=== PATIENT | female | born 1960 | race Caucasian/White ===

== ENCOUNTER → 2020-04-23 15:27 | Outpatient (CLI) | payer OTHER, SELFPAY ==
--- NOTE | ~2020-04-23 | MM_ITS ---
EXAMINATION: MM screening shaun BI w an HISTORY: Screening TECHNIQUE: Craniocaudal and mediolateral oblique 3-D tomosynthesis images were obtained and synthetic 2-D images were generated. CAD analysis was submitted and interpreted. COMPARISON: Comparison to multiple prior studies sequentially, with oldest reviewed study dated 01/18. BREAST PARENCHYMAL COMPOSITION: The breasts are extremely dense, which lowers the sensitivity of mamm ography. FINDINGS: There is no evidence of suspicious mass, calcification, or architectural distortion to sugg est malignancy in either breast. There has been no suspicious interval change. IMPRESSION: 1. No mammographic evidence of malignancy. 2. Recommend routine screening mammography in one year. BI-RADS Category 1: Negative Reviewed, dictated and finalized at location A. 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
== END ==
PROVIDERS: Visit Provider Nurse Practitioner Family
DX: Z12.31 Encounter for screening mammogram for malignant neoplasm of breast (principal)
CPT/HCPCS: 77063; 77067

== ENCOUNTER → 2020-11-08 16:17 | Outpatient (CLI) | payer OTHER, SELFPAY ==
--- NOTE | ~2020-11-08 | XR_ITS ---
XR shoulder RT min 2V DATE: 11/08/2020 16:37 INDICATION: Right shoulder pain TECHNIQUE: 4 views COMPARISON: None FINDINGS: Diffuse osteopenia. No recent fracture or dislocation. No periosteal reaction or bone destruction. Normal alignment at th e, clavicular and glenohumeral joints. No abnormal soft tissue calcification of the right shoulder. IMPRESSION: Diffuse osteopenia Reviewed, dictated and finalized at location A. IMPRESSION: Diffuse osteopenia
== END ==
PROVIDERS: Visit Provider Nurse Practitioner Family
DX: M25.511 Pain in right shoulder (principal); Z78.0 Asymptomatic menopausal state; M85.89 Other specified disorders of bone density and structure, multiple sites
CPT/HCPCS: 73030

== ENCOUNTER → 2020-12-23 13:20 | Outpatient (CLI) | payer BC, SELFPAY ==
--- NOTE | ~2020-12-23 | DEXA_ITS ---
Bone Density Report Name: Ai Mix Age: 60 Sex: Female Ethnicity: White Date of : 1960 Indication: postmenopausal; screening for osteoporosis; height loss; asthma or emphysema; Referring Provider: Shelli, Diane Ritter Study: Bone densitometry was performed. Exam Date: December 23, 2020 Accession number: [id number] Bone Density: Region BMD T-score Z-score Classification AP Spine (L1-L4) 0.836 -1.9 -0.4 Osteopenia Femoral Neck (Left) 0.624 -2.0 -0.7 Osteopenia Total Hip (Left) 0.646 -2.4 -1.4 Osteopenia Femoral Neck (Right) 0.529 -2.9 -1.5 Osteoporosis Total Hip (Right) 0.557 -3.2 -2.1 Osteoporosis Total Hip Mean 0.602 -2.8 -1.8 Osteoporosis World Health Organization criteria for BMD impression classify patients as: Normal (T-score at or above -1.0), Osteopenia (T-score between -1.0 and -2.5), or Osteoporosis (T-score at or below -2.5). 10-year Fracture Risk: FRAX not reported because: Some T-score for Spine Total or Hip Total or Femoral Neck at or below -2.5 Clinical Information Provided by Patient: Smokes Has used the following medications: Vitamin D, multi vit Has the following medical conditions: Asthma or Emphysema Patient maximum height was 67 Menopause Age: 41 No regular weight bearing exercise Does not regularly consume dairy products Drinks caffeinated beverages Onset of menses at age 12 Number of children 3 Impression: The patient has osteoporosis, based on the Right Total Hip T-score. The patient has risk factors, including: smoking. Discussion: HIGH RISK OF FRACTURE. BONE DENSITY IS UNDESIRABLY LOW AT ONE OR MORE SKELETAL SITES, CONSISTENT WITH OSTEOPOROSIS. ALSO, BONE DENSITY IS LOWER THAN EXPECTED FOR AGE AND SEX AT ONE OR MORE SKELETAL SITES; RECOMMEND A DILIGENT SEARCH FOR SECONDARY CAUSES OF BONE LOSS. This patient's lowest T-score meets the World Health Organization's (WHO) criteria for osteoporosis at one or more sites (T-score -2.5 or below). In untreated patients, the risk of osteoporotic fracture increases approximately two-fold for each 1.0 SD decrease in T-score. Low bone density is not the only risk factor for fracture; also consider factors such as patient's age, frailty or poor health, risk of falling, risk of injury, previous osteoporotic fracture, family history of osteoporosis, cigarette smoking, low body weight, etc. Not everyone with low bone mineral density has osteoporosis; osteomalacia and other metabolic bone disorders should also be considered. Patients who have osteoporosis should be evaluated for specific diseases and conditions (secondary causes) that may cause or contribute to bone loss. The [place] [employer] Endocrinologists (AACE) and National Osteoporosis Foundation (NOF) recommend pharmacologic intervention for all postmenopausal women whose
== END ==
PROVIDERS: PCP Nurse Practitioner Family; Visit Provider Nurse Practitioner Family
DX: M25.511 Pain in right shoulder (principal); Z78.0 Asymptomatic menopausal state; M85.89 Other specified disorders of bone density and structure, multiple sites; M81.0 Age-related osteoporosis without current pathological fracture
CPT/HCPCS: 77080

== ENCOUNTER → 2021-09-02 15:43 | Outpatient (CLI) | payer BC, SELFPAY ==
--- NOTE | ~2021-09-02 | CT_ITS ---
EXAMINATION: CT lung screening DATE: 09/02/2021 16:05 INDICATION: Hx of tabacco dependence, lung cancer screening TECHNIQUE: Computed tomography (CT) of the chest was performed without intravenous contrast. Addition al 3D reconstructions utilizing coronal maximum intensity projection (MIP) were performed. Automated exposure control and iterative reconstruction technique were employed. The dose-length product was 48 .62 mGy-cm. COMPARISON: 03/08/2017 FINDINGS: Mild to moderate emphysema. Stable appearance of a few peripheral linear opacities and small pleural- based nodules at the bilateral apices, the largest measuring up to 8 mm most likely pleural-parenchym al scarring. No other new or enlarging pulmonary nodules. No pneumonia, pulmonary edema or pleural ef fusion. Heart size is normal. Atherosclerotic coronary artery calcific lesions. No pericardial effusi on. Thoracic aorta is normal in caliber. No pathologically enlarged thoracic lymphadenopathy. Cholecy stectomy clips the gallbladder fossa. Visualized upper abdomen is otherwise unremarkable. Mild S-shap ed thoracic scoliosis with severe spondylosis. Old healed anterior right fifth rib fracture. IMPRESSION: 1. Lung-RADS category 2: Benign appearance or behavior. Continue annual screening with noncontrast lo w-dose chest CT in 12 months. 2. Mild to moderate emphysema. Reviewed, dictated and finalized at location A. 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 Lung-RADS category 2: Benign appearance or behavior. Continue annual screeni ng with noncontrast low-dose chest CT in 12 months. 2. Mild to moderate emphysema.
== END ==
PROVIDERS: Visit Provider Nurse Practitioner Family
DX: Z12.2 Encounter for screening for malignant neoplasm of respiratory organs (principal); Z87.891 Personal history of nicotine dependence
CPT/HCPCS: 71271

== ENCOUNTER → 2022-03-10 14:07 | Outpatient (CLI) | payer BC, SELFPAY ==
--- NOTE | ~2022-03-10 | MM_ITS ---
EXAMINATION: MM screening shaun BI w an HISTORY: Screening mammogram TECHNIQUE: Craniocaudal and mediolateral oblique 3-D tomosynthesis images were obtained and synthetic 2-D images were generated. CAD analysis was submitted and interpreted. COMPARISON: 04/23/2020, 09/07/2018 bilateral screening mammogram examinations BREAST PARENCHYMAL COMPOSITION: The breasts are extremely dense, which lowers the sensitivity of mamm ography. FINDINGS: There is no evidence of suspicious mass, calcification, or architectural distortion to sugg est malignancy in either breast. There has been no suspicious interval change. IMPRESSION: 1. No mammographic evidence of malignancy. 2. Recommend routine screening mammography in one year. BI-RADS Category 1: Negative Reviewed, dictated and finalized at location A.
== END ==
PROVIDERS: PCP Nurse Practitioner Family; Visit Provider Nurse Practitioner Family
DX: Z12.31 Encounter for screening mammogram for malignant neoplasm of breast (principal)
CPT/HCPCS: 77063; 77067

== ENCOUNTER → 2022-03-10 14:10 | Outpatient (CLI) | payer BC, SELFPAY ==
--- NOTE | ~2022-03-10 | MR_ITS ---
EXAMINATION: MR cervical spine wo con DATE: 03/10/2022 14:46 INDICATION: Neck pain. TECHNIQUE: Magnetic resonance imaging (MRI) of the cervical spine was performed without intravenous c ontrast. Sequences included sagittal T2-weighted FSE, sagittal T2-weighted FS FSE, sagittal T1-weight ed FSE, axial MERGE, and axial T2-weighted FSE. COMPARISON: None FINDINGS: There is 2 mm anterolisthesis of C4 on C5 and C5 on C6 and C7 on T1. Vertebral body heights are normal. There is moderately decreased disc height at C4-C5 and severely decreased disc height at C5-C6, C6-C7, and C7-T1. The following disc levels are specifically discussed: C2-C3: There is a central protrusion. There is no uncovertebral joint osteoarthritis. There is severe bilateral facet joint osteoarthritis. There is no neural foraminal stenosis. There is no central can al stenosis. C3-C4: The disc is bulging. There is mild bilateral uncovertebral joint osteoarthritis. There is bethel re bilateral facet joint osteoarthritis. There is mild bilateral neural foraminal stenosis. There is no central canal stenosis. C4-C5: The disc is bulging. There is moderate right and severe left uncovertebral joint osteoarthriti s. There is severe bilateral facet joint osteoarthritis. There is moderate left neural foraminal sten osis. There is mild central canal stenosis. C5-C6: The disc is bulging. There is severe bilateral uncovertebral joint osteoarthritis. There is se ana right and moderate left facet joint osteoarthritis. There is moderate right and mild left neural foraminal stenosis. There is mild central canal stenosis. C6-C7: The disc is bulging. There is severe bilateral uncovertebral joint osteoarthritis. There is se ana right and moderate left facet joint osteoarthritis. There is moderate bilateral neural foraminal stenosis. There is mild central canal stenosis. C7-T1: The disc is bulging. There is moderate bilateral uncovertebral joint osteoarthritis. There is severe right and moderate left facet joint osteoarthritis. There is mild bilateral neural foraminal s tenosis. There is mild central canal stenosis. IMPRESSION: 1. Severe cervical spondylosis. Reviewed, dictated and finalized at location A.
== END ==
PROVIDERS: PCP Nurse Practitioner Family; Visit Provider Nurse Practitioner Family
DX: M47.813 Spondylosis without myelopathy or radiculopathy, cervicothoracic region (principal); M48.03 Spinal stenosis, cervicothoracic region
CPT/HCPCS: 72141

== ENCOUNTER → 2023-04-20 12:09 | Outpatient (CLI) | payer BC, SELFPAY ==
--- NOTE | ~2023-04-20 | DEXA_ITS ---
Bone Density Report Name: ZHAO KOROMA Age: 63 Sex: Female Ethnicity: White Date of : 1960 Indication: postmenopausal osteoporosis; height loss; inflammatory bowel disease; asthma or emphysema; Referring Provider: Shelli, Diane Ritter Study: Bone densitometry was performed. Exam Date: April 20, 2023 Accession number: [id number] Bone Density: Region BMD T-score Z-score Classification AP Spine (L1-L4) 0.902 -1.3 0.4 Osteopenia Femoral Neck (Left) 0.629 -2.0 -0.5 Osteopenia Total Hip (Left) 0.666 -2.3 -1.1 Osteopenia Femoral Neck (Right) 0.504 -3.1 -1.6 Osteoporosis Total Hip (Right) 0.569 -3.1 -1.9 Osteoporosis Total Hip Mean 0.618 -2.7 -1.5 Osteoporosis World Health Organization criteria for BMD impression classify patients as: Normal (T-score at or above -1.0), Osteopenia (T-score between -1.0 and -2.5), or Osteoporosis (T-score at or below -2.5). 10-year Fracture Risk: FRAX not reported because: Some T-score for Spine Total or Hip Total or Femoral Neck at or below -2.5 Previous Exams: Region Exam Age BMD T-score BMD Change BMD Change Date g/cm2 vs Baseline vs Previous AP Spine(L1-L4) 04/20/2023 63 0.902 -1.3 0.066* 0.066* 12/23/2020 60 0.836 -1.9 Total Hip(Left) 04/20/2023 63 0.666 -2.3 0.020 0.020 12/23/2020 60 0.646 -2.4 Total Hip(Right) 04/20/2023 63 0.569 -3.1 0.012 0.012 12/23/2020 60 0.557 -3.2 *Denotes significance at 95% confidence level, LSC for AP Spine = 0.022 g/cm2, LSC for Total Hip = 0.027 g/cm2 Clinical Information Provided by Patient: Smokes Has used the following medications: Vitamin D, MTV Has the following medical conditions: Asthma or Emphysema, Inflammatory bowel diseases Patient maximum height was 66.0 Menopause Age: 41 No regular weight bearing exercise Does not regularly consume dairy products Drinks caffeinated beverages Onset of menses at age 12 Number of children 3 Impression: The patient has osteoporosis, based on the Right Total Hip T-score. The patient has risk factors, including: smoking. No significant bone loss was observed. Discussion: INCREASED RISK OF FRACTURE. BONE DENSITY IS UNDESIRABLY LOW AT ONE OR MORE SKELETAL SITES, CONSISTENT WITH POSTMENOPAUSAL OSTEOPOROSIS. This patient's lowest T-score meets the World Health Organization's (WHO) criteria for osteoporosis at one or more sites (T-score -2.5 or below). In [facility] [place]
== END ==
PROVIDERS: PCP Nurse Practitioner Family; Visit Provider Nurse Practitioner Family
DX: Z13.820 Encounter for screening for osteoporosis (principal); M85.89 Other specified disorders of bone density and structure, multiple sites; M81.0 Age-related osteoporosis without current pathological fracture
CPT/HCPCS: 77080

== ENCOUNTER → 2023-07-25 14:45 | Outpatient (CLI) | payer BC, SELFPAY ==
--- NOTE | ~2023-07-25 | MM_ITS ---
EXAMINATION: MM screening shaun BI w an HISTORY: Screening TECHNIQUE: Craniocaudal and mediolateral oblique 3-D tomosynthesis images were obtained and synthetic 2-D images were generated. CAD analysis was submitted and interpreted. COMPARISON: Comparison to multiple prior studies sequentially, with oldest reviewed study dated 08/21. . BREAST PARENCHYMAL COMPOSITION: Dense: The breasts are extremely dense, which lowers the sensitivity of mammography. FINDINGS: There is no evidence of suspicious mass, calcification, or architectural distortion to sugg est malignancy in either breast. There has been no suspicious interval change. IMPRESSION: 1. No mammographic evidence of malignancy. 2. Recommend routine screening mammography in one year. 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
== END ==
PROVIDERS: PCP Nurse Practitioner Family; Visit Provider Nurse Practitioner Family
DX: Z12.31 Encounter for screening mammogram for malignant neoplasm of breast (principal)
CPT/HCPCS: 77063; 77067

== ENCOUNTER 2023-10-11 12:40 | Outpatient (CLI) | payer BC, SELFPAY ==
--- NOTE | ~2023-10-11 | CT_ITS ---
CT Scan of the Chest without Contrast: Clinical Indication: Lung cancer screening, nicotine dependence Technique: Contiguous sections were acquired throughout the chest without intravenous contrast. Dose reduction technique was used on this scan by utilizing automated exposure control and iterative recon struction technique. The dose-length product (DLP) was 45.13 mGy-cm. Findings: There is no evidence of any significant mediastinal, hilar or axillary lymphadenopathy. The mediastin al soft tissues appear normal. There is no evidence of pleural or pericardial effusion. There is stable biapical scarring and small bilateral pleural-based nodules. There is however a new 1 .1 cm parenchymal nodule, noncalcified, in the left upper lobe (axial image 35). Images through the upper abdomen reveal no abnormalities. Impression: Lung RADS 4B: Very suspicious. New 1.1 cm left upper lobe pulmonary nodule. Recommend attempted tissu e sampling to establish histologic diagnosis. Reviewed, dictated and finalized at [facility]. Impression: Lung RADS 4B: Very suspicious. New 1.1 cm left upper lobe pulmonary nodule. Rec miryam attempted tissue sampling to establish histologic diagnosis.
== END 2023-10-11 12:41 ==
LOC: MICIMG 12:41
PROVIDERS: PCP Nurse Practitioner Family; Visit Provider Nurse Practitioner Family
DX: Z12.2 Encounter for screening for malignant neoplasm of respiratory organs (principal); Z87.891 Personal history of nicotine dependence; R91.8 Other nonspecific abnormal finding of lung field
CPT/HCPCS: 71271

== ENCOUNTER 2023-11-16 08:37 | Outpatient (CLI) | payer BC, SELFPAY ==
[2023-11-07 13:39] VITALS: BMI 19.9
--- NOTE | 2023-11-07 13:39 | PC.NURSE ---
Pre Radiology instructions Report to the outpatient alisia almanzar on date _[id number]_ at time _0900_ for procedure Time: 1100_ YOU MAY BE MONITORED AT HOSPITAL FOR UP TO 4 HOURS AFTER YOUR PROCEDURE. A visitor will be allowed to accompany the patient into the hospital. You and your visitor will be asked to self-screen and do not enter if you have any COVID symptoms. A mask is OPTIONAL within the hospital. Patients are to have no food or drink 6 hours prior to procedure time Driving will be restricted after the procedure, you must have a person to drive you home. Labs will be drawn in preop area and once reviewed, you will be taken to radiology area for procedure. When the procedure is completed, you will be taken to outpatient where you will be monitored for several hours. You may have one visitor in this area. Other than holding anti-coagulants, patient may take other medication(s) as scheduled. Prior to your appointment date patients are instructed to hold anti-coagulants after discussing with ordering provider to stop. If unable to discontinue anti-coagulants please notify radiologist. ? No aspirin or warfarin (Coumadin) for 7 days prior to the procedure. ? No clopidogrel (Plavix), ticagrelor (Brilinta), prasugrel (Effient) or dabigatran (Pradaxa) for 5 days prior to the procedure. ? No rivaroxaban (Xarelto), apixaban (Eliquis), dipyridamole (Aggrenox or Persantine) or cilostazol (Pletal) for 2 days prior to the procedure. Medications to discontinue per physician: _excedrin Date to take last dose: _[id number] Please leave all valuables, including medications, at home the day of procedure. The hospital will not accept responsibility for valuables. Wear comfortable, loose fitting clothing.? Follow any additional instructions given to you from ordering provider. Telephone instructions given to __Ai and asked if any additional questions and then verbalized understanding. Patient advised to call scheduling provider office or registration scheduling [phone] if any additional questions.
[2023-11-16] VITALS (14 sets, daily range): BP systolic 98–135; BP diastolic 70–86; PULSE 54–88; RESP 16–18; TEMP 37.2; O2SAT 92–100
--- NOTE | ~2023-11-16 | XR_ITS ---
EXAMINATION: XR chest 1V DATE: 11/16/2023 11:03 INDICATION: Left lung nodule status post percutaneous biopsy. TECHNIQUE: A single frontal view of the chest was obtained. COMPARISON: Chest 2 views 12/10/2017, chest CT 10/11/2023 FINDINGS: There is mild scarring at the lung apices. There is a nodule in left upper lobe. No pleural effusion. There is a small left pneumothorax. The heart size is normal. Surgical clips in the right upper quadrant are likely from cholecystectomy. IMPRESSION: 1. Nodule in left lung upper lobe suspicious for primary bronchogenic carcinoma. 2. Small left pneumothorax. Reviewed, dictated and finalized at location A. IMPRESSION: 1. Nodule in left lung upper lobe suspicious for primary bronchogenic carcinoma . 2. Small left pneumothorax.
--- NOTE | ~2023-11-16 | CT_ITS ---
EXAMINATION: CT biopsy lung w/imaging DATE: 11/16/2023 11:02 INDICATION: Solitary pulmonary nodule. TECHNIQUE: The procedure including the risks, benefits, and alternatives and possibility of chest tub e placement were discussed with the patient. Risks discussed included infection, hemorrhage, approxim ately 1/3 risk of pneumothorax, approximately 1/10 risk of pneumothorax severe enough to warrant ches t tube placement, and rarely . The patient understood the risks and agreed to proceed. The patie nt was placed prone. The skin overlying the left lung was prepped and draped in sterile fashion. An esthetic was administered with 1% lidocaine subcutaneously. A 19 gauge outer needle was advanced und er CT guidance to the lesion of interest. A 20 gauge core biopsy needle was then used to obtain 3 cor e biopsy specimens. The needle was removed and the entry site was cleaned and dressed. The mA was adj usted according to patient size. Iterative reconstruction technique was employed. The dose-length pro duct was 130.01 mGy-cm. There were no immediate complications. FINDINGS: CT images demonstrate the outer needle tip in an 11 mm nodule in left lung upper lobe. IMPRESSION: 1. CT-guided core needle biopsy of an 11 mm nodule in left lung upper lobe. Reviewed, dictated and finalized at location A.
--- NOTE | ~2023-11-16 | XR_ITS ---
EXAMINATION: XR chest 1V portable DATE: 11/16/2023 14:13 INDICATION: Left lung nodule status post percutaneous biopsy. TECHNIQUE: A single frontal view of the chest was obtained. COMPARISON: Chest single view at 11:58 AM FINDINGS: There is a nodule in left lung upper lobe. There is mild scarring at the lung apices. No pl eural effusion. There is a small left pneumothorax. The heart size is normal. IMPRESSION: 1. Nodule in left lung upper lobe suspicious for primary bronchogenic carcinoma. 2. Stable small left pneumothorax. Reviewed, dictated and finalized at location A. IMPRESSION: 1. Nodule in left lung upper lobe suspicious for primary bronchogenic carcinoma . 2. Stable small left pneumothorax.
--- NOTE | ~2023-11-16 | XR_ITS ---
EXAMINATION: XR chest 1V portable DATE: 11/16/2023 12:03 INDICATION: Left lung nodule status post percutaneous biopsy. TECHNIQUE: A single frontal view of the chest was obtained. COMPARISON: Chest view at 11:02 AM FINDINGS: There is mild scarring at the lung apices. There is a nodule in left lung upper lobe. No pl eural effusion. There is a small left pneumothorax. The heart size is normal. IMPRESSION: 1. Nodule in left lung upper lobe suspicious for primary bronchogenic carcinoma. 2. Stable small left pneumothorax. Reviewed, dictated and finalized at location A. IMPRESSION: 1. Nodule in left lung upper lobe suspicious for primary bronchogenic carcinoma . 2. Stable small left pneumothorax.
[2023-11-16 09:36] LABS: Mean Platelet Volume 8.7 fl (7.4-10.4); Platelet Count Result 364 k/mm3 (150-375)
[2023-11-16 09:47] LABS: INR 0.9; Prothrombin Time 12.2 Seconds (11.1-14.7)
--- NOTE | 2023-11-16 14:22 | SUR.PHASEII ---
MD Mccarty notified of xray at bedside to obtain final chest xray. Pt ok to discharge home per MD Mccarty
== END 2023-11-16 14:54 | disposition home or self-care (01) ==
PROVIDERS: PCP Nurse Practitioner Family; Visit Provider Radiology Diagnostic Radiology
PROC: BB24ZZZ Computerized Tomography (CT Scan) of Bilateral Lungs (ICD-10-PCS; CPT 32408; principal; 2023-11-16 11:00)
DX: Z01.818 Encounter for other preprocedural examination (principal); R91.1 Solitary pulmonary nodule; J93.83 Other pneumothorax; J84.10 Pulmonary fibrosis, unspecified; J43.9 Emphysema, unspecified
CPT/HCPCS: 32408; 36415; 71045; 85049; 85610; 88305; 88312; 88342

== ENCOUNTER 2024-09-22 12:27 | Outpatient (CLI) | payer MEDICARE, SELFPAY ==
--- NOTE | ~2024-09-22 | MM_ITS ---
EXAMINATION: MM screening shaun BI w an HISTORY: Screening mammogram TECHNIQUE: Craniocaudal and mediolateral oblique 3-D tomosynthesis images were obtained and synthetic 2-D images were generated. CAD analysis was submitted and interpreted. COMPARISON: 07/25/2023, 03/10/2022, 04/23/2020 BREAST PARENCHYMAL COMPOSITION:Dense: The breasts are extremely dense, which lowers the sensitivity o f mammography. FINDINGS: No suspicious mass, calcification, or architectural distortion are identified in either shalonda ast to suggest malignancy. There has been no suspicious interval change. IMPRESSION: No mammographic evidence of malignancy. Recommend routine screening mammography in one year. BI-RADS Category 1: Negative Reviewed, dictated and finalized at location .
== END 2024-09-22 12:28 | disposition home or self-care (01) ==
LOC: MICIMG 12:30
PROVIDERS: PCP Nurse Practitioner Family; Visit Provider Nurse Practitioner Family
DX: Z12.31 Encounter for screening mammogram for malignant neoplasm of breast (principal)
CPT/HCPCS: 77063; 77067

== ENCOUNTER 2025-04-20 07:50 | Outpatient (CLI) | payer MEDICARE, SELFPAY ==
--- NOTE | ~2025-04-20 | DEXA_ITS ---
Bone Density Report Name: ZHAO KOROMA Age: 65 Sex: Female Ethnicity: White Date of : 1960 Indication: postmenopausal osteoporosis; monitoring treatment; height loss; prior fracture; asthma or emphysema; Referring Provider: JAYLIN CHOUDHURY Study: Bone densitometry was performed. Exam Date: April 20, 2025 Accession number: [id number] Bone Density: Region BMD T-score Z-score Classification AP Spine(L1-L4) 0.914 -1.2 0.6 Osteopenia Femoral Neck (Left) 0.632 -2.0 -0.4 Osteopenia Total Hip (Left) 0.657 -2.3 -1.1 Osteopenia Femoral Neck (Right) 0.530 -2.9 -1.3 Osteoporosis Total Hip (Right) 0.580 -3.0 -1.7 Osteoporosis Total Hip Mean 0.618 -2.7 -1.4 Osteoporosis World Health Organization criteria for BMD impression classify patients as: Normal (T-score at or above -1.0), Osteopenia (T-score between -1.0 and -2.5), or Osteoporosis (T-score at or below -2.5). 10-year Fracture Risk: FRAX not reported because: Some T-score for Spine Total or Hip Total or Femoral Neck at or below -2.5 Treated for osteoporosis Previous Exams: -- Region Exam Age BMD T-score BMD Change BMD Change Date g/cm2 vs Baseline vs Previous -- AP Spine (L1-L4) 04/20/2025 65 0.914 -1.2 9.3%* 1.3% 04/20/2023 63 0.902 -1.3 7.9%* 7.9%* 12/23/2020 60 0.836 -1.9 Total Hip(Left) 04/20/2025 65 0.657 -2.3 1.7% -1.4% 04/20/2023 63 0.666 -2.3 3.2% 3.2% 12/23/2020 60 0.646 -2.4 Total Hip(Right) 04/20/2025 65 0.580 -3.0 4.2% 2.0% 04/20/2023 63 0.569 -3.1 2.1% 2.1% 12/23/2020 60 0.557 -3.2 -- *Denotes significance at 95% confidence level, LSC for AP Spine = 0.022 g/cm2, LSC for Total Hip = 0.027 g/cm2 Clinical Information Provided by Patient: Has had a low trauma fracture Smokes Is being treated for osteoporosis Has used the following medications: Vitamin D Has the following medical conditions: Asthma or Emphysema Patient maximum height was 67 Menopause Age: 41 Does not regularly consume dairy products Drinks caffeinated beverages Onset of menses at age 13 Number of children 3 Impression: The patient has established osteoporosis, based on the Right Total Hip T-score and the existence of a prior fracture. The patient has risk factors, including: smoking, previous fracture. No significant bone loss was observed. Discussion: PATIENT UNDER TREATMENT WITH NO SIGNIFICANT BMD LOSS SINCE LAST EXAM. In an untreated patient, BMD typically declines with age. A lack of decline or gain is usually a sign that treatment is efficacious and fracture risk is reduced. It is important to ask patients whether they are taking their medications and to encourage continued and appropriate compliance with their osteoporosis therapies to reduce fracture risk. It is also important to review their risk factors and encourage appropriate calcium and vitamin D intakes, exercise, fall prevention and other lifestyle measures. Follow-Up: Consider a repeat BMD and Vertebral Fracture Assessment (VFA) exam in 2 years or sooner if medically necessary, to reassess this patient's status. Reported by: ROVERTO on 04/20/2025 8:18:00 AM. Reviewed, dictated and finalized at location A.
== END 2025-04-20 07:51 | disposition home or self-care (01) ==
LOC: MICIMG 07:56
PROVIDERS: PCP Nurse Practitioner Family; Visit Provider Nurse Practitioner Family
DX: M81.0 Age-related osteoporosis without current pathological fracture (principal)
CPT/HCPCS: 77080

== ENCOUNTER 2025-04-20 07:58 | Outpatient (CLI) | payer MEDICARE, SELFPAY ==
--- NOTE | ~2025-04-20 | XR_ITS ---
XR cervical spine min 6V Indication: M54.2 - Cervicalgia Comparison: None Findings: Grade 1 anterolisthesis C3 on C4 C4 C5, no fracture. No subluxation flexion and extension. Severe loss of disc height C5-6 and C6-7. There is narrowing of the foramina bilaterally at C5-6 and C6-7. Soft tissues unremarkable Impression: No acute abnormality. Reviewed, dictated and finalized at location P. Impression: No acute abnormality.
== END 2025-04-20 07:59 | disposition home or self-care (01) ==
LOC: MICIMG 07:59
PROVIDERS: PCP Nurse Practitioner Adult Health; Visit Provider Nurse Practitioner Adult Health
DX: M54.2 Cervicalgia (principal); M47.812 Spondylosis without myelopathy or radiculopathy, cervical region
CPT/HCPCS: 72052